=== PATIENT | female | born 1975 | race Caucasian/White ===

== ENCOUNTER 2020-02-04 05:06 | Day surgery (SDC) | payer OTHER ==
[2020-02-02 11:32] VITALS: BMI 26.6
--- NOTE | 2020-02-04 10:16 | HP ---
History & Physical Update - History History: No Change - Physical Physical: No Change - Assessment Assessment: No Change - Plan Plan: No Change (Patient decides on non-stapled [place] hemorrhoide ctomy)
[2020-02-04] MEDS ORDERED: MIDAZOLAM HCL 2 MG/2 ML SINGLE DOSE VIAL ONE (10:42)
[2020-02-04] MEDS ORDERED: PROPOFOL 20 ML ONE ×2 (10:44)
[2020-02-04] MEDS ORDERED: SUCCINYLCHOLINE CHLORIDE 200 MG/10 ML SYRINGE ONE (10:44)
[2020-02-04] MEDS ORDERED: DEXAMETHASONE SOD PHOSPHATE 4 MG/1 ML VIAL ONE (10:48)
[2020-02-04] MEDS ORDERED: LIDOCAINE 1%/EPI 1:100000 (20 ML MULTI DOSE VIAL) ONE (10:51)
[2020-02-04] MEDS ORDERED: ceFAZolin SODIUM 1 GM VIAL IVPB ONE (10:57)
[2020-02-04] MEDS ORDERED: ceFAZolin SODIUM 1 GM VIAL ONE (10:57)
[2020-02-04] MEDS ORDERED: LIDOCAINE 1%/EPI 1:100000 (20 ML MULTI DOSE VIAL) IJ ONE (11:07)
[2020-02-04] MEDS ORDERED: oxyCODONE HCL 5 MG TABLET PO PRN (14:13)
[2020-02-04] MEDS ORDERED: ONDANSETRON 4 MG/2 ML VIAL IVPUSH PRN (14:13)
[2020-02-04] MEDS ORDERED: LACTATED RINGERS SOLUTION 1,000 ML IV SCH (14:15)
[2020-02-04 15:33] VITALS: BP 128/96; PULSE 97; TEMP 98
--- NOTE | 2020-02-04 16:05 | OP ---
Operative Note - Note: Operative Date: 02/04/20 Pre-Operative Diagnosis: Stage 4 hemorrhoids Operation: EUA, hemorrhoidectomy Findings: multiple prolapsed hemorrhoids Post-Operative Diagnosis: Same as Pre-op Surgeon: Juan Luis Norman Anesthesia: General Estimated Blood Loss (mls): 20 Operative Report Dictated: Yes
--- NOTE | 2020-02-07 17:15 | OP ---
DATE OF OPERATION: 02/04/2020 PROCEDURE: Examination under anesthesia, hemorrhoidectomy (x4). PREOPERATIVE DIAGNOSIS: Stage 4 internal-external hemorrhoids. POSTOPERATIVE DIAGNOSIS: Stage 4 internal-external hemorrhoids. SURGEON: Juan Luis Norman MD. ANESTHESIA: General via laryngeal mask airway. FINDINGS ON PROCEDURE: This is a 44-year-old female who presents with longstanding history of prolapsed hemorrhoids where patient was noted to have 2 x 2 cm prolapsing hemorrhoids of the right posterior and left lateral columns and 1 x 1 cm prolapsed hemorrhoid of the right anterior posterior hemorrhoidal column, and a 1 x 5 cm external hemorrhoid of the 12 o'clock position. Patient was initially advised staple hemorrhoidectomy, however patient declined, and opted for the traditional open hemorrhoidectomy. So consent was obtained after discussion of the risks, benefits, and alternatives of the procedure. DESCRIPTION OF PROCEDURE: The patient was brought to the operating room and placed in supine position. General anesthesia via laryngeal mask airway was administered. Patient was then placed in extended lithotomy position. The perineum was prepped and draped in the usual sterile fashion. Using lidocaine 1% with epinephrine, perianal anesthesia was administered. Afterwards, the anal canal was carefully inspected using the [place] anal retractor. No other lesion was noted other than the prolapsing hemorrhoids. So the large hemorrhoids of the right posterior hemorrhoidal column were excised first by applying one [id number] suture ligature above the dentate line for hemostasis and followed by excision of the internal-external component of the hemorrhoid using the Bovie cautery. The wound was the closed with the continuous Vicryl 2-0 suture. The left lateral column was excised as well as the right anterior middle column was excised in the same manner. The external hemorrhoids of the 12 o'clock position was excised also by applying Vicryl 2-0 suture ligature above the dentate line and excising the hemorrhoid with Bovie cautery to hemorrhoid. Wound was also closed with continuous Vicryl 2-0 suture. Otherwise the anal canal was carefully inspected and was noted to be free of active bleeding. A small piece of Xeroform gauze was inserted in the anal canal to aid in further hemostasis. Patient was then placed back in supine position and successfully extubated. The patient was transferred to the post anesthesia care unit in satisfactory condition. Estimated blood loss was about 15 mL. Wound class contaminated. Patient received 1 g of Ancef prior to start of the procedure. JUAN LUIS NORMAN M.D. [id number]
--- NOTE | 2020-02-07 17:54 | PATH ---
Surgical Pathology Report Patient Name: KATHY MEJIA Med. Rec. #: [id number] /Age/Gender: 1975 (Age: 44) / F Account: [id number] Location: [facility] SURGICAL Taken: 02/04/2020 Received: 02/04/2020 Reported: 02/07/2020 Physicians: Juan Luis Norman M.D. Specimen(s) Received HEMORRHOIDS Clinical History Stage IV prolapsed hemorrhoids Final Diagnosis HEMORRHOIDS, HEMORRHOIDECTOMY: POLYPOID SQUAMOUS MUCOSA WITH DILATED THICK WALLED CONGESTED SUBMUCOSAL VESSELS CONSISTENT WITH HEMORRHOIDS. Electronically Signed Chiquis Cedeno M.D. Gross Description Received in formalin labeled "hemorrhoids" are 4 fragments of bush, focally hemorrhagic mucosal soft tissue ranging in size from 1.2-1.7 cm in greatest dimension. [employer] sections are submitted in one cassette. MLSZ/02/04/2020 [place]em[place]a/02/04/2020
== END 2020-02-04 16:43 | disposition home or self-care (01) ==
LOC: JASU-SURG 05:06
PROVIDERS: ATTEND Surgery
PROC: 06BY0ZC Excision of Hemorrhoidal Plexus, Open Approach (ICD-10-PCS; principal; 2020-02-04 10:30)
DX: K64.3 Fourth degree hemorrhoids (principal)
CPT/HCPCS: 84703; 88304-TC; 94760